=== PATIENT | male | born 1995 | race Caucasian/White ===

== ENCOUNTER 2016-08-23 19:09 | Emergency (ER) | payer SELFPAY ==
[~2016-08-23] VITALS: Ht 175.3 cm; Wt 72.5 kg
[~2016-08-23 19:09] MED LIST: LEXAPRO20 MG PO; LORTAB 5-325 M1 EACH PO
[2016-08-23] MEDS ORDERED: PAXIL20 MG PO (19:41)
[2016-08-23] MEDS ORDERED: ZOFRAN ODT8 MG PO (20:39)
[2016-08-23] MEDS ORDERED: MOTRIN800 MG PO (20:39)
[2016-08-23 21:13] VITALS: BP 111/55
== END 2016-08-23 21:14 | disposition home or self-care (01) ==
LOC: EME 19:09
DX: B34.9 Viral infection, unspecified (principal)
CPT/HCPCS: 99281; 99283; J1885; J2405; J7030

== ENCOUNTER 2016-09-15 17:02 | Emergency (ER) | payer SELFPAY ==
[~2016-09-15] VITALS: Ht 172.7 cm; Wt 74.4 kg
[~2016-09-15 17:02] MED LIST changes: +MOTRIN800 MG PO; +PAXIL20 MG PO; +ZOFRAN ODT8 MG PO
[2016-09-15 17:12] VITALS: BP 140/57
[2016-09-15] MEDS ORDERED: KEFLEX500 MG PO (17:49)
== END 2016-09-15 18:13 | disposition home or self-care (01) ==
LOC: EME 17:02
PROC: 3E0234Z Introduction of Serum, Toxoid and Vaccine into Muscle, Percutaneous Approach (ICD-10-PCS; principal; 2016-09-15)
PROC: 0HQGXZZ Repair Left Hand Skin, External Approach (ICD-10-PCS; principal; 2016-09-15)
DX: S61.211A Laceration without foreign body of left index finger without damage to nail, initial encounter (principal); Z23 Encounter for immunization; W26.8XXA Contact with other sharp object(s), not elsewhere classified, initial encounter
CPT/HCPCS: 99281; 99284

== ENCOUNTER 2016-10-27 21:45 | Emergency (ER) | payer OTHER ==
[~2016-10-27] VITALS: Ht 175.3 cm; Wt 75.4 kg
[~2016-10-27 21:45] MED LIST changes: +KEFLEX500 MG PO
[2016-10-27 22:58] LABS: HEMATOCRIT 46.6 % (38.0-50.0); MCH 30.4 PG (29.0-34.0); MCHC 35.2 G/DL (30.0-36.0); MCV 86.3 FL (86-99); MEAN PLAT.VOLUME 9.1 uM^3 (9.0-12.4); PLATELET COUNT 252 K/uL (156-360); RBC DIS.WIDTH-CV 12.7 % (11.8-14.6); RBC DIS.WIDTH-SD 39.8 % (39-53); WHITE BLOOD COUNT 9.2 K/uL (4.1-10.2)
[2016-10-27 23:17] LABS: CHLORIDE 102 mEq/L (99-109); POTASSIUM 3.7 mEq/L (3.7-5.4); SODIUM 139 mEq/L (136-147)
[2016-10-27 23:18] LABS: GLUCOSE 114 mg/dL (70-99)
[2016-10-27 23:20] LABS: ANION GAP 12 MEQ/L (2-14)
[2016-10-27 23:22] LABS: GFR ESTIMATE (CALCULATED) > 59 mL/min/
[2016-10-27 23:23] LABS: UREA NITROGEN (BUN) 17 mg/dL (9-23)
[2016-10-27 23:33] VITALS: BP 105/50
== END 2016-10-27 23:34 | disposition home or self-care (01) ==
LOC: EME 21:45 → EXP 21:45
PROVIDERS: Physician Assistant
DX: S80.862A Insect bite (nonvenomous), left lower leg, initial encounter (principal); S80.861A Insect bite (nonvenomous), right lower leg, initial encounter; S10.96XA Insect bite of unspecified part of neck, initial encounter; W57.XXXA Bitten or stung by nonvenomous insect and other nonvenomous arthropods, initial encounter; E86.0 Dehydration; R51 Headache
CPT/HCPCS: 80048; 85027; 99281; 99283